=== PATIENT | female | born 1990 | race Caucasian/White ===

== ENCOUNTER 2022-01-03 11:07 | Inpatient (IN) | payer MEDICAID, SELFPAY ==
[2022-01-03 11:21] VITALS: BP 139/83; PULSE 92; RESP 18; TEMP 36.5; O2SAT 98
[2022-01-03 11:30] VITALS: BMI 19.3
[2022-01-03] MEDS: LORazepam 2 mg Tablet PO ×2 (11:46→15:14)
--- NOTE | 2022-01-03 11:52 | PC.NURSE ---
Patient scored 10 on ciwa scare. Ativan 2 mg po given.
[2022-01-03 14:00] VITALS: BP 139/83; PULSE 92; RESP 18; TEMP 36.5
--- NOTE | 2022-01-03 15:07 | PC.OT ---
OT EVALUATION ATTEMPTED THIS P.M. PATIENT SLEEPING SOUNDLY. WILL ATTEMPT AGAIN IN A.M.
[2022-01-03] MEDS: nicotine 2 mg Gum BUCCAL (15:12)
--- NOTE | 2022-01-03 15:24 | PC.NURSE ---
Patient Ciwa score is 12 given lorazepam 2 mg po for this.
[2022-01-03] MEDS: hyDROXYzine 25 mg Capsule 50 MG PO (20:12)
[2022-01-03] MEDS: OLANZapine 5 mg ODT PO (21:39)
--- NOTE | 2022-01-03 21:46 | PC.NURSE ---
Patient was pacing the saavedra during shift change. She received a phone call and then became very tearful. She requested medication for anxiety. Visteril was given at 2011. I let her know if that did not help to let us know and we could try something different. She came back to the nurses station requesting another medication. Zyprexa was given at 2138.
[2022-01-03 22:00] VITALS: BP 103/73; PULSE 90; RESP 18; TEMP 37.1; O2SAT 97
[2022-01-04 06:00] VITALS: BP 84/53; PULSE 57; RESP 16; TEMP 36.6; O2SAT 98
[2022-01-04] MEDS: folic acid 1 mg Tablet PO (09:15)
[2022-01-04] MEDS: multivitamin therapeutic Tablet 1 TAB PO (09:15)
[2022-01-04] MEDS: thiamine 100 mg Tablet PO (09:15)
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
[2022-01-04 14:00] VITALS: BP 134/68; PULSE 95; RESP 17; TEMP 36.8; O2SAT 95
[2022-01-04] MEDS: nicotine 2 mg Gum BUCCAL (14:12)
[2022-01-04] MEDS: hyDROXYzine 25 mg Capsule 50 MG PO (14:12)
[2022-01-04] MEDS: OLANZapine 5 mg ODT PO (16:29)
[2022-01-04] MEDS: fluoxetine 20 mg Capsule PO (18:33)
[2022-01-04] MEDS: docusate sodium 100 mg Capsule PO (20:17)
[2022-01-04] MEDS: divalproex DR 500 mg Tablet PO (20:17)
[2022-01-04] MEDS: trazodone 50 mg Tablet PO ×2 (20:17→22:30)
[2022-01-04 21:54] VITALS: BP 125/65; PULSE 82; RESP 18; TEMP 36.6; O2SAT 96
[2022-01-05 06:00] VITALS: BP 88/60; PULSE 63; RESP 17; TEMP 36.6; O2SAT 95
[2022-01-05] MEDS: folic acid 1 mg Tablet PO (08:31)
[2022-01-05] MEDS: thiamine 100 mg Tablet PO (08:31)
[2022-01-05] MEDS: multivitamin therapeutic Tablet 1 TAB PO (08:31)
[2022-01-05] MEDS: fluoxetine 20 mg Capsule PO (08:31)
[2022-01-05] MEDS: nicotine 2 mg Gum BUCCAL (10:25)
[2022-01-05] MEDS: hyDROXYzine 25 mg Capsule 50 MG PO ×2 (13:44→19:41)
[2022-01-05 14:00] VITALS: BP 100/74; PULSE 88; RESP 17; TEMP 36.9; O2SAT 98
[2022-01-05] MEDS: OLANZapine 5 mg ODT PO (17:57)
--- NOTE | 2022-01-05 19:00 | W.PM.NPUPNS ---
Subjective NPU Subjective: Interval history: Patient presents today somewhat demanding and downplaying the seriousness of her presentation and recent relapse. We discussed the fact that her UDS was positive only for alcohol which identifies a problem but cannabis and amphetamines. She continues to focus on her children as the solution for her problem but could not answer the question of why they would not the solution when she was out there is struggling prior to admission. We are able to reach out to her mother who stated no uncertain terms of that. Fear about her daughter coming home without engaging in real treatment with real accountability. Mental Status Exam MSE Comments: This is a well-nourished, well-developed white female in hospital scrubs with limited grooming and eye contact. No abnormal movements except for mild psychomotor retardation. Cooperative with exam in mild distress. Speech was decreased rate and volume. Patient mood described as okay I just want to go home, affect subdued. Thought process, organized. Thought content: patient denies any suicidal or homicidal ideation, no delusions reported or noted, and denies any auditory or visual hallucinations. Attention and concentration are intact and memory is somewhat reliable but none were formally tested. Insight and judgment appear limited. Impulse control is limited. Vitals/I&O/Wt Last Vital Signs Temp 97.8 F 01/05/22 20:55 Pulse 68 01/05/22 20:55 Resp 18 01/05/22 20:55 BP 95/61 01/05/22 20:55 Pulse Ox 98 01/05/22 20:55 A&P Assessment and plan (1) Alcohol dependence: Status: Acute (2) MDD (major depressive disorder), recurrent episode: Status: Acute (3) PTSD (post-traumatic stress disorder): Status: Acute (4) Methamphetamine abuse: Status: Acute (5) Cannabis abuse: Status: Acute Plan This is a 31 year old white female with post traumatic stress disorder, major depressive disorder, recurrent, alcohol use disorder/alcohol dependence, severe and alcohol withdrawal who presents open to medication. Continue current medications except Initiated Prozac 20 mg po qam Initiated Depakote 500 mg po qhs Encourage individual, group and milieu therapy Continue q-15 minute check for safety Recommend sober living treatment at the highest level of care to which the patient is willing to commit. Continue [facility] Involuntary Hold Information 96 Hour Hold: 96 Hour Involuntary Admission: No Attestations NPU Medical Necessity Statement*: Inpatient hospitalization is medically necessary and the clinically appropriate intervention at this time. We will monitor medications and make changes as indicated. Likely length of stay is 1-3 days. Coding Level of Care Code Acute Stone Sawyer for g Fwd Diagnoses Alcohol dependence F10.20 MDD (major depressive disorder), recurrent episode F33.9 PTSD (post-traumatic stress disorder) F43.10 Methamphetamine abuse F15.10 Cannabis abuse F12.10
[2022-01-05] MEDS: docusate sodium 100 mg Capsule PO (20:32)
[2022-01-05] MEDS: divalproex DR 500 mg Tablet PO (20:32)
--- NOTE | 2022-01-05 20:45 | PC.NURSE ---
patient reports she wants something for anxiety and sleep. states trazodone gave me restless legs and didn't help at all last night.
[2022-01-05] MEDS: haloperidol 5 mg Tablet PO (20:52)
[2022-01-05 20:55] VITALS: BP 95/61; PULSE 68; RESP 18; TEMP 36.6; O2SAT 98
[2022-01-06 06:00] VITALS: BP 108/69; PULSE 69; RESP 18; TEMP 36.9; O2SAT 99
[2022-01-06] MEDS: multivitamin therapeutic Tablet 1 TAB PO (08:56)
[2022-01-06] MEDS: fluoxetine 20 mg Capsule PO (08:56)
[2022-01-06] MEDS: thiamine 100 mg Tablet PO (08:56)
[2022-01-06] MEDS: folic acid 1 mg Tablet PO (08:56)
--- NOTE | 2022-01-06 09:03 | PC.NURSE ---
Am assessment Patient is in room resting quietly. She responds to verbal stimuli. She is alert and oriented in all aspects. She denies SI, HI, or hallucinations. Hr regular in rhythm with ppp x 2, no edema noted. Lungs clear with breathing even and nonlabored. Bowel sounds active in all quads. Denies pain with urination. Denies all other pain. Skin is warm and dry.
[2022-01-06] MEDS: OLANZapine 5 mg ODT PO (13:39)
[2022-01-06] MEDS: nicotine 2 mg Gum BUCCAL (13:39)
--- NOTE | 2022-01-06 13:40 | PC.NURSE ---
prn note Patient came to desk very anxious stating she wanted to go home. Staff encouraged patient to stay and speak with physician. She requested meds to help with anxiety. Zyprexa given. Will monitor for effectiveness.
[2022-01-06 14:00] VITALS: BP 114/71; PULSE 77; RESP 17; TEMP 36.7; O2SAT 96
[2022-01-06] MEDS: haloperidol 5 mg Tablet PO (14:27)
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
[2022-01-06] MEDS: LORazepam 2 mg Tablet PO (16:07)
--- NOTE | 2022-01-06 16:09 | PC.NURSE ---
Addendum entered by Nay Soares RN 01/06/22 17:57: Follow up for ativan patient is resting comfortably at this time. No s/s of agitation or anxiety noted. Ativan effective. Original Note: Prn note Patient continues to have severe anxiety, noted to have had Zyprexa and Haldol with no effect. Ativan 2mg given for severe agitation and anxiety.
[2022-01-06] MEDS: divalproex DR 500 mg Tablet PO (20:10)
[2022-01-06] MEDS: docusate sodium 100 mg Capsule PO (20:10)
[2022-01-06 20:24] VITALS: BP 95/61; PULSE 71; RESP 16; TEMP 36.8; O2SAT 97
[2022-01-07 05:26] VITALS: BP 95/61; PULSE 71; RESP 16; TEMP 36.8; O2SAT 97
[2022-01-07 06:40] VITALS: BP 98/63; PULSE 70; RESP 16; TEMP 36.6; O2SAT 96
[2022-01-07] MEDS: folic acid 1 mg Tablet PO (08:46)
[2022-01-07] MEDS: multivitamin therapeutic Tablet 1 TAB PO (08:46)
[2022-01-07] MEDS: fluoxetine 20 mg Capsule PO (08:46)
[2022-01-07] MEDS: thiamine 100 mg Tablet PO (08:46)
[2022-01-07] MEDS: hyDROXYzine 25 mg Capsule 50 MG PO (13:42)
--- NOTE | 2022-01-07 13:43 | PC.NURSE ---
Addendum entered by Kika Jasmine LPN 01/07/22 17:06: LATE ENTRY PRN MED EFFECTIVE NO FURTHER C/O ANXIETY Original Note: prn Vistaril 50 mg given po per pt c/o stated anxiety
[2022-01-07] MEDS: nicotine 2 mg Gum BUCCAL (13:48)
[2022-01-07 14:00] VITALS: BP 108/73; PULSE 106; RESP 17; TEMP 36.7; O2SAT 96
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
[2022-01-07 18:27] VITALS: BP 108/73; PULSE 106; RESP 17; TEMP 36.7; O2SAT 96
== END 2022-01-07 18:32 | disposition home or self-care (01) | DRG 885 ==
PROVIDERS: Admitting Provider Psychiatry & Neurology Psychiatry; Visit Provider Psychiatry & Neurology Psychiatry
DX: F33.9 Major depressive disorder, recurrent, unspecified (principal); R45.851 Suicidal ideations; F10.20 Alcohol dependence, uncomplicated; F43.10 Post-traumatic stress disorder, unspecified; F15.10 Other stimulant abuse, uncomplicated; F12.10 Cannabis abuse, uncomplicated
CPT/HCPCS: 96372; 97150; 97165; J3411